=== PATIENT | male | born 1990 | race African-American/Black ===

== ENCOUNTER 2018-02-17 10:17 | Emergency (ER) | payer SELFPAY ==
[2018-02-17 10:40] VITALS: BP 122/78; PULSE 104; TEMP 97; BMI 19.3
--- NOTE | 2018-02-17 10:54 | PDOC ---
History of Present Illness - General Chief Complaint: Injury Stated Complaint: INJURY Time Seen by Provider: 02/17/18 10:40 History Source: Patient Exam Limitations: No Limitations - History of Present Illness Initial Comments: 02/17/18 10:51 27 year old with no medical or surgical history, s/p tripped and fall using right hand to break fall. Complaining of pain and swelling at site. Reports no head trauma or loc. Occurred: reports: just prior to arrival Severity: reports: moderate Upper Extremity Pain Location: right: hand Method of Injury: reports: fell Modifying Factors: improves with: immobilization Extremity Pain Location - Extremity Pain Location Extremity Pain Locations: right: hand Past History - Travel Traveled outside of the country in the last 30 days: No Close contact w/someone who was outside of country & ill: No - Past Medical History Allergies/Adverse Reactions: Allergies Allergy/AdvReac Type Severity Reaction Status Date / Time No Known Allergies Allergy Verified 02/17/18 10:25 Home Medications: Ambulatory Orders Ibuprofen 600 mg PO QID #30 tablet 02/17/18 COPD: No - Suicide/Smoking/Psychosocial Hx Smoking History: Never smoked Review of Systems - Review of Systems Able to Perform ROS?: Yes Is the patient limited Polish proficient: No Constitutional: No: Chills, Diaphoresis, Fever, Night Sweats, Weakness, Unexplained wgt Loss HEENTM: No: See HPI, Eye Pain, Double Vision, Nose Pain, Nose Congestion, Tinnitus, Mouth Swelling Respiratory: No: Cough, Orthopnea, Shortness of Breath, Stridor, Wheezing, Productive cough Cardiac (ROS): No: Chest Pain, Lightheadedness ABD/GI: No: Blood Streaked Bowels, Nausea, Indigestion : No: Burning, Dysuria, Incontinence Musculoskeletal: Yes: Other (right hand pain and swelling ). No: Joint Pain, Muscle Weakness Integumentary: No: Bruising, Erythema Psychiatric: No: Frequent Crying, Stressors, Change in Appetite Endocrine: No: Intolerance to Heat *Physical Exam - Vital Signs Last Vital Signs Temp Pulse Resp BP Pulse Ox 97 F L 104 H 20 122/78 99 02/17/18 10:19 02/17/18 10:19 02/17/18 10:19 02/17/18 10:19 02/17/18 10:19 - Physical Exam General Appearance: Yes: Nourished, Appropriately Dressed HEENT: positive: FELICE Neck: positive: Supple Respiratory/Chest: positive: Lungs Clear Cardiovascular: positive: Regular Rhythm, Regular Rate, S1, S2 Extremity: positive: Normal Capillary Refill, Swelling, Erythema, Inflammation, Other (right hand swelling over 3rd, 4th and 5th metacarpal, pain with rom, unable to make a fist) 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 02/17/18 15:57 Patient recieved cat scan of right hand Dr Valencia came into fast track and reduced dislocation: 1. morphine 2mg ivp by IRIS Polanco 2. procedure observed and patient monitored by IRIS Polanco during reduction of 5th metacarpal 3, follow up cat scan of right upper extremity obtained after reduction 4. Patient given Rx: for analgesia and follow up information for Dr. Valencia's office 5. Patient states he will be going back to [place] possibly in 2 days and will follow up there: copy of xray given and strick instructions for follow up patient states understanding *DC/Admit/Observation/Transfer Diagnosis at time of Disposition: Closed dislocation of fifth metacarpal bone of right hand Fracture of fourth metacarpal bone of right hand Qualifiers: Encounter type: initial encounter Fracture type: closed Metacarpal location: base Fracture alignment: nondisplaced Qualified Code(s): S62.344A - Nondisplaced fracture of base of fourth metacarpal bone, right hand, initial encounter for closed fracture - Discharge Dispostion Disposition: HOME Condition at time of disposition: Good Admit: No - Prescriptions Prescriptions: Ibuprofen 600 mg PO QID #30 tablet - Referrals Referrals: Levy Valencia MD [Staff Physician] - - Patient Instructions Printed Discharge Instructions: How to Use a Sling, DI for Boxer's Fracture Additional Instructions: 1. It is imperative that you follow up with orthopedics after today's visit; please call Monday for an appointment or call as soon as you get to [place] for follow up there 2. Please keep splint in place, do not remove, keep dry 3. Use sling for comfort, may remove for sleeping 4, Return to emergency room for worsening of pain, swelling or discoloration of fingers 5. Keep arm elevated above the heart at rest - Post Discharge Activity Forms/Work/School Notes: Back to Work
[2018-02-17] MEDS ORDERED: KETOROLAC TROMETHAMINE 30 MG/1 ML VIAL IM ONE (10:55)
[2018-02-17] MEDS ORDERED: KETOROLAC TROMETHAMINE 30 MG/1 ML VIAL ONE (10:58)
[2018-02-17] MEDS ORDERED: LIDOCAINE HCL 1%, 10 MG/ML (20ML VIAL) ONE (14:14)
[2018-02-17] MEDS ORDERED: morphine CARPU-JECT 2 MG/1 ML DISP.SYRIN IVPUSH ONE (14:24)
[2018-02-17] MEDS ORDERED: morphine SULFATE 4 MG/ML VIAL ONE (14:29)
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
== END 2018-02-17 16:26 | disposition home or self-care (01) ==
LOC: JERFT 10:17
PROC: 2W3CX1Z Immobilization of Right Lower Arm using Splint (ICD-10-PCS; principal; 2018-02-17)
PROC: 0RSSXZZ Reposition Right Carpometacarpal Joint, External Approach (ICD-10-PCS; 2018-02-17)
PROC: 3E033NZ Introduction of Analgesics, Hypnotics, Sedatives into Peripheral Vein, Percutaneous Approach (ICD-10-PCS; 2018-02-17)
DX: S62.344A Nondisplaced fracture of base of fourth metacarpal bone, right hand, initial encounter for closed fracture (principal); S63.266A Dislocation of metacarpophalangeal joint of right little finger, initial encounter; Y04.2XXA Assault by strike against or bumped into by another person, initial encounter; Y93.89 Activity, other specified; Y92.89 Other specified places as the place of occurrence of the external cause; Y99.8 Other external cause status
CPT/HCPCS: 73110-TC-RT-FY; 73130-TC-RT-FY; 73200-TC-RT; 99282-25